=== PATIENT | male | born 1975 | race Caucasian/White ===

== ENCOUNTER 2017-07-24 08:29 | Emergency (ER) | payer BC ==
[2017-07-24 09:02] VITALS: BP 149/109
--- NOTE | 2017-07-24 09:25 | UC ---
Abdominal Pain Male HPI - HPI Summary HPI Summary: N/V/D began yesterday---stool is soft brown and is throwing up clear liquids now -- - History of Current Complaint Chief Complaint: UCAbdominalPain Stated Complaint: ABD PAIN,VOMITING,DIARRHEA Time Seen by Provider: 07/24/17 09:22 Hx Obtained From: Patient Onset/Duration: Sudden Onset, Lasting Days - on day 2, Still Present Timing: Constant Severity Initially: Moderate Severity Currently: Moderate Location: Diffuse Radiates: No Character: Cramping Aggravating Factor(s): Food Alleviating Factor(s): Nothing Associated Signs And Symptoms: Positive: Decreased Appetite, Nausea, Vomiting, Diarrhea. Negative: Blood in Stool - Allergies/Home Medications Allergies/Adverse Reactions: Allergies Allergy/AdvReac Type Severity Reaction Status Date / Time No Known Allergies Allergy Verified 07/24/17 08:54 Home Medications: Home Medications Bupropion XL* [Wellbutrin XL *] 1 tab QPM 07/24/17 [History Confirmed 07/24/17] hydrOXYzine HCL TAB* [Atarax 10 MG TAB*] 1 tab TID PRN 07/24/17 [History Confirmed 07/24/17] PMH/Surg Hx/FS Hx/Imm Hx Previously Healthy: No Cardiovascular History: Hypertension Psychological History: Depression - Surgical History Surgical History: None - Family History Known Family History: Positive: Cardiac Disease, Hypertension - Social History Occupation: Employed Full-time Lives: Alone Alcohol Use: Weekly Substance Use Type: Marijuana Substance Use Comment - Amount & Last Used: OCCASIONALLY-LAST USED 07/22/17 Smoking Status (MU): Light Every Day Tobacco Smoker Type: eCigarettes Amount Used/How Often: 1 CIGARETTE PER DAY Length of Time of Smoking/Using Tobacco: 15 YRS. Have You Smoked in the Last Year: Yes - Immunization History Most Recent Influenza Vaccination: NOT YET 2017 Review of Systems Constitutional: Chills, Fatigue Eyes: Negative ENT: Negative Respiratory: Negative Cardiovascular: Negative Gastrointestinal: Abdominal Pain, Vomiting, Diarrhea, Nausea Genitourinary: Negative Motor: Negative Neurovascular: Negative Musculoskeletal: Negative Neurological: Negative Psychological: Negative Is Patient Immunocompromised?: Yes All Other Systems Reviewed And Are Negative: No Physical Exam Triage Information Reviewed: Yes Appearance: Well-Nourished, Ill-Appearing, Pain Distress Vital Signs: Initial Vital Signs Temp 98 F 07/24/17 08:55 Pulse 84 07/24/17 08:55 Resp 20 07/24/17 08:55 BP 149/109 07/24/17 08:55 Pulse Ox 98 07/24/17 08:55 Vital Signs Reviewed: Yes Eye Exam: Normal Eyes: Positive: Conjunctiva Clear ENT Exam: Normal ENT: Positive: Normal ENT inspection, Hearing grossly normal, Pharynx normal, TMs normal, Uvula midline. Negative: Nasal congestion, Nasal drainage, Tonsillar swelling, Tonsillar exudate, Trismus, Muffled voice, Hoarse voice, Sinus tenderness Dental Exam: Normal Neck exam: Normal Neck: Positive: Supple, Nontender, No Lymphadenopathy Respiratory Exam: Normal Respiratory: Positive: Chest non-tender, Lungs clear, Normal breath sounds, No respiratory distress, No accessory muscle use Cardiovascular Exam: Normal Cardiovascular: Positive: RRR, No Murmur, Pulses Normal, Brisk Capillary Refill Abdominal Exam: Other Abdomen Description: Positive: No Organomegaly, Soft. Negative: CVA Tenderness (R), CVA Tenderness (L), Distended, Hepatomegaly, McBurney's Point Tenderness, Peritoneal Signs, Splenomegaly Bowel Sounds: Positive: Present Musculoskeletal Exam: Normal Musculoskeletal: Positive: Strength Intact, ROM Intact, No Edema Neurological Exam: Normal Neurological: Positive: Alert, Muscle Tone Normal Psychological Exam: Normal Skin Exam: Normal Re-Evaluation - Re-Evaluation First Eval Change: Unchanged - emesis with clear liquids after zofran---Will give 1 liter of IVF and IV Zofran Second Eval Change: Improved - feels better remains aferbile taking po fluids well no diarrhea Abd Pain Male Course/Dx - Course Course Of Treatment: rest,advance diet slowly, zofran prn, follow bp with pcp - Differential Dx/Clinical Impression Provider Diagnoses: Elevated blood pressure in poor control, acute nausea, vomiting and diarrhea Discharge - Discharge Plan Condition: Stable Disposition: HOME Prescriptions: Ondansetron ODT TAB* [Zofran 4 MG Odt TAB*] 4 mg PO Q6H PRN #6 tab.odt PRN Reason: Nausea/Vomiting Patient Education Materials: Acute Nausea and Vomiting (ED), Acute Diarrhea (ED ), Hypertension (ED) Referrals: ARANZA Villanueva [Primary Care Provider] - 2 Weeks
[2017-07-24] MEDS ORDERED: Ondansetron ODT TAB* 4 MG PO ONE (09:29)
[2017-07-24] MEDS ORDERED: NS 0.9% 1000 ML* 1,000 ML IV ONE (09:44)
[2017-07-24] MEDS ORDERED: Ondansetron INJ* 2 MG/ML VIAL IV ONE (09:45)
== END 2017-07-24 11:45 | disposition home or self-care (01) ==
LOC: UCCORT 08:29
DX: R19.7 Diarrhea, unspecified (principal); R11.2 Nausea with vomiting, unspecified; R10.9 Unspecified abdominal pain; I10 Essential (primary) hypertension; F17.210 Nicotine dependence, cigarettes, uncomplicated
CPT/HCPCS: 81003; 99212; A9270-GY; G0463; J2405

== ENCOUNTER 2017-11-25 07:26 | Emergency (ER) | payer BC ==
[2017-11-25] MEDS ORDERED: Ondansetron INJ* 2 MG/ML VIAL IV ONE (07:58)
[2017-11-25] MEDS ORDERED: NS 0.9% 1000 ML* 1,000 ML IV SCH (08:00)
--- NOTE | 2017-11-25 08:03 | UC ---
Palpitation/Dysrhythmia HP - HPI Summary HPI Summary: PATIENT WOKE UP THIS MORNING 2 AM WITH NAUSEA/VOMITING, DIARRHEA, ACHING AND FEELING LIKE HIS HEART WAS RACING. HE DOES HAVE A HISTORY OF ANXIETY AND STARTED TO "FREAK OUT" WHICH MADE HIS SYMPTOMS WORSE. HE TOOK A ZOFRAN WHICH HELPED A LITTLE BUT HE REPORTS HE IS STILL UNABLE TO KEEP ANYTHING DOWN BY MOUTH. HE HAD EATEN AT [employer]'S SEVERAL HOURS PRIOR TO ONSET OF SYMPTOMS. HE DENIES ANY CHEST PAIN, SWEATS, SHORTNESS OF BREATH. - History of Current Complaint Chief Complaint: UCGeneralIllness Stated Complaint: HEART RACING,DIZZY,DIARRHEA,VOMITING Time Seen by Provider: 11/25/17 07:31 Hx Obtained From: Patient Onset/Duration: Sudden Onset, Lasting Hours, Still Present Timing: Constant Severity Initially: Moderate Severity Currently: Moderate Pain Intensity: 6 Pain Scale Used: 0-10 Numeric Character: Fast, Pounding Aggravating Factor(s): Nothing Alleviating Factor(s): Nothing Associated Signs & Symptoms: Positive: Nausea, Vomiting. Negative: Lightheadedness, Dizzy, Syncope, Chest Pain, Shortness of Breath, Diaphoresis - Allergy/Home Medications Allergies/Adverse Reactions: Allergies Allergy/AdvReac Type Severity Reaction Status Date / Time No Known Allergies Allergy Verified 11/25/17 07:33 PMH/Surg Hx/FS Hx/Imm Hx Cardiovascular History: Hypertension Psychological History: Anxiety - Surgical History Surgical History: None - Family History Known Family History: Positive: Cardiac Disease, Hypertension - Social History Alcohol Use: Daily Alcohol Amount: 4 drinks/day Substance Use Type: Marijuana Substance Use Comment - Amount & Last Used: OCCASIONALLY-LAST USED 11/23/17 Smoking Status (MU): Light Every Day Tobacco Smoker Type: eCigarettes Amount Used/How Often: 1 CIGARETTE PER DAY Length of Time of Smoking/Using Tobacco: 15 YRS. Have You Smoked in the Last Year: Yes - Immunization History Most Recent Influenza Vaccination: NOT YET 2017 Review of Systems Constitutional: Negative Respiratory: Shortness Of Breath Cardiovascular: Palpitations Gastrointestinal: Vomiting, Diarrhea, Nausea Genitourinary: Negative Psychological: Anxious All Other Systems Reviewed And Are Negative: Yes Physical Exam Triage Information Reviewed: Yes Appearance: Well-Appearing, No Pain Distress, Well-Nourished Vital Signs: Initial Vital Signs Temp 98.7 F 11/25/17 07:33 Pulse 125 11/25/17 07:33 Resp 22 11/25/17 07:33 BP 128/97 11/25/17 07:33 Pulse Ox 99 11/25/17 07:33 Eyes: Positive: Conjunctiva Clear ENT: Positive: Hearing grossly normal Neck: Positive: Supple, Nontender, No Lymphadenopathy Respiratory Exam: Normal Cardiovascular: Positive: Tachycardia Abdomen Description: Positive: Nontender, Soft. Negative: CVA Tenderness (R), CVA Tenderness (L), Distended, Guarding Bowel Sounds: Positive: Present Musculoskeletal: Positive: No Edema Neurological: Positive: Alert Psychological: Positive: Age Appropriate Behavior Skin: Negative: rashes Diagnostics - EKG Cardiac Rate: Tachycardia - 125bpm Cardiac Rhythm: Sinus: Normal Ectopy: None ST Segment: Normal Re-Evaluation - Re-Evaluation First Eval Re-Evaluation Time: 09:35 - FEELS BETTER AFTER 1L NS AND 4MG ZOFRAN 1V. KEPT DOWN ADRI RICHAR PO. STATES ANXIETY IS GONE. STOMACH STILL UPSET. WILL STAY FOR A BIT LONGER AND SIP ON MORE FLUIDS Change: Improved Second Eval Re-Evaluation Time: 10:45 - VOMITED AND NOW FEELS EXTREMELY DIZZY. WILL SEND TO ED. Change: Worse Palpitations Course/Dx - Course Course Of Treatment: PT FELT IMPROVED AFTER 1L NS, 4MG ZOFRAN AND WAS TOLERATING PO BUT THEN SUDDENLY VOMITED AND NOW FEELS EXTREMELY DIZZY. WILL SEND TO [facility] ED BY AMBULANCE. - Differential Dx/Diagnosis Provider Diagnoses: DIZZY, TACHYCARDIC, NAUSEA - Physician Notifications Discussed Patient Care With: Hope Whitney - TO [facility] ED BY AMBULANCE Time Discussed With Above Provider: 10:50 Instructed by Provider To: MD Will See In ED Discharge - Sign-Out/Discharge Documenting (check all that apply): Discharge/Admit/Transfer - Discharge Plan Condition: Stable Disposition: [facility] Referrals: ARANZA Villanueva [Primary Care Provider] - - Billing Disposition and Condition Condition: STABLE Disposition: [facility]
[2017-11-25 10:45] VITALS: BP 136/90
== END 2017-11-25 11:05 | disposition short-term general hospital (02) ==
LOC: UCCORT 07:26
DX: R42 Dizziness and giddiness (principal); R00.0 Tachycardia, unspecified; R11.0 Nausea; I10 Essential (primary) hypertension; F17.210 Nicotine dependence, cigarettes, uncomplicated
CPT/HCPCS: 93005; 96361; 96374; 99213; G0463; J2405

== ENCOUNTER 2019-09-06 17:24 | Emergency (ER) | payer BC, OTHER ==
--- OUTSIDE RECORDS SUMMARY | 2019-09-06 17:36 | XMS REPORT | Continuity of Care Document ---
:1975 External Reference #:[id number] Author Name Marley Rinaldi M.D. Address [address] [place] [address] Care Team Providers Name Role Phone Avis Shannon NP - Family Care Team Information Registered Private Duty Nurse [phone] Problems Active Problems Provider Date Induratio penis plastica Marley Rinaldi M.D. Onset: 07/09/2019 Social History Type Date Description Comments Sex Unknown ETOH Use Uses Alcohol Daily Tobacco Use Start: Unknown Patient is a current 2 cigarettes a day smoker, smokes every day Recreational Drug Use Marijuana Smoking Status Reviewed: 07/02/19 Patient is a current 2 cigarettes a day smoker, smokes every day Allergies, Adverse Reactions, Alerts Description No Known Drug Allergies Medications Active Medications SIG Qnty Indications Ordering Provider Date Alprazolam Take One Tablet Unknown 0.5mg Tablets By Mouth Twice A Day as Needed For Anxiety Maximum Daily Dose 2 Bupropion Hydrochloride Take One Tablet Unknown ER (XL) By Mouth Every 150mg Tablets ER Day 24HR Lisinopril Take One Tablet Unknown 20mg Tablets By Mouth Every Day Hydroxyzine HCL Take One Tablet Unknown 50mg By Mouth Three Tablets Times A Day as Needed Ibuprofen Take One Tablet Unknown 800mg Tablets By Mouth Every 8 Hours as Needed Montelukast Sodium Take One Tablet Unknown 10mg By Mouth AT Tablets Bedtime Atorvastatin Calcium Take One Tablet Unknown 40mg By Mouth AT Tablets Bedtime Immunizations Description No Information Available Vital Signs Date Vital Result Comment 07/09/2019 9:06am BP Systolic 150 mmHg BP Diastolic 96 mmHg Body Temperature 97.8 F Heart Rate 91 /min Respiratory Rate 16 /min Height 68 inches 5'8" Weight 174.12 lb Pain Level 0 BMI (Body Mass Index) 26.5 kg/m2 BSA (Body Surface Area) 1.93 m2 [place] body weight in kilograms 70 kg O2 % BldC Oximetry 96 % Results Description No Information Available Procedures Description No Information Available Medical Devices Description No Information Available Encounters Type Date Location Provider Dx Diagnosis Office Visit 07/09/2019 Urology Marley Rinaldi N48.6 Induration penis 9:15a Yaniv plastica Assessments Date Code Description Provider 07/09/2019 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 Plan of Treatment Future Appointment(s):10/12/2019 8:30 am - Sean Zacarias PA at [id number] - Marley Rinaldi M.D.N48.6 Induration penis plasticaComments:Patient most likely with Peyronie's disease given the physical exam. I told the patient the pain sometimes can take up to a year to stabilize. He is to continue using Viagra as needed and I told himthere is no oral medication other than anti-inflammatory that I would recommend at this point. He is not too bothered by the curvature itself but by the pain. He will follow-up with me in 3 months. Functional Status Description No Information Available Mental Status Description No Information Available Referrals Description No Information Available
--- NOTE | 2019-09-06 18:18 | UC ---
Ear Complaint HPI - HPI Summary HPI Summary: 44-year-old male who has had head congestion and cough over the past 2 weeks. He's had postnasal drainage and states he has purulent sputum of greenish color - History of Current Complaint Chief Complaint: UCRespiratory Stated Complaint: SORE THROAT, COUGH, EAR COMPLAINT Time Seen by Provider: 09/06/19 18:17 Hx Obtained From: Patient Onset/Duration: Gradual Onset Severity Initially: Moderate Severity Currently: Mild Pain Intensity: 7 Aggravating Factors: Nothing Alleviating Factors: Nothing Associated Signs/Symptoms: Positive: URI Symptoms - Allergies/Home Medications Allergies/Adverse Reactions: Allergies Allergy/AdvReac Type Severity Reaction Status Date / Time No Known Allergies Allergy Verified 09/06/19 18:12 PMH/Surg Hx/FS Hx/Imm Hx Previously Healthy: Yes Cardiovascular History: Hypertension Psychological History: Anxiety - Surgical History Surgical History: None - Family History Known Family History: Positive: Cardiac Disease, Hypertension - Social History Occupation: Employed Full-time Alcohol Use: Occasionally Alcohol Amount: 4 drinks/day Substance Use Type: Marijuana Substance Use Comment - Amount & Last Used: OCCASIONALLY Smoking Status (MU): Former Smoker Type: eCigarettes Amount Used/How Often: 1 CIGARETTE PER DAY Length of Time of Smoking/Using Tobacco: 15 YRS. Have You Smoked in the Last Year: Yes - Immunization History Most Recent Influenza Vaccination: NOT YET 2017 Review of Systems All Other Systems Reviewed And Are Negative: Yes ENT: Positive: Nasal Discharge, Sinus Congestion, Sinus Pain/Tenderness Respiratory: Positive: Cough - Productive cough of greenish sputum Is Patient Immunocompromised?: No Physical Exam Triage Information Reviewed: Yes Appearance: Well-Appearing, No Pain Distress, Well-Nourished Vital Signs: Initial Vital Signs Temp 98.5 F 09/06/19 18:12 Pulse 90 09/06/19 18:12 Resp 16 09/06/19 18:12 BP 151/103 09/06/19 18:12 Pulse Ox 97 09/06/19 18:12 Vital Signs Reviewed: Yes Eyes: Positive: Conjunctiva Clear ENT: Positive: Hearing grossly normal, Pharynx normal - Yellow purulent postnasal drainage., Nasal congestion, Nasal drainage - Yellow purulent nasal coryza, TMs normal, Sinus tenderness - Mild tenderness over the frontal sinuses bilaterally, Uvula midline Neck: Positive: Supple, Nontender, No Lymphadenopathy Respiratory: Positive: Lungs clear, Normal breath sounds, No respiratory distress, No accessory muscle use Cardiovascular: Positive: RRR, No Murmur, Pulses Normal, Brisk Capillary Refill Musculoskeletal Exam: Normal Neurological Exam: Normal Psychological Exam: Normal Skin Exam: Normal Ear Complaint Course/Dx - Course Course Of Treatment: Patient is comfortable here and in no distress. I'm going to treat him for sinusitis and no work until Tuesday. - Differential Dx/Diagnosis Provider Diagnosis: Sinusitis Discharge ED - Sign-Out/Discharge Documenting (check all that apply): Patient Departure All imaging exams completed and their final reports reviewed: No Studies - Discharge Plan Condition: Fair Disposition: HOME Prescriptions: Amoxicillin/Clavulanate TAB* [Augmentin TAB 875*] 875 mg PO BID 10 Days #20 tab Ondansetron TAB* [Zofran 4 MG Tab*] 4 mg PO Q6H PRN #10 tab PRN Reason: Nausea Patient Education Materials: Sinusitis (ED) Forms: *Work Release Referrals: ARANZA Villanueva [Primary Care Provider] - Additional Instructions: Increase fluids, take the Augmentin with food, follow-up with your primary care provider early next week if no improvement. - Billing Disposition and Condition Condition: FAIR Disposition: Home
[2019-09-06 18:38] VITALS: BP 139/93
== END 2019-09-06 18:35 | disposition home or self-care (01) ==
LOC: UCCORT 17:24
DX: J32.9 Chronic sinusitis, unspecified (principal); R05 Cough; I10 Essential (primary) hypertension; Z87.891 Personal history of nicotine dependence
CPT/HCPCS: 99212; G0463